=== PATIENT | male | born 1935 | race Caucasian/White ===

== ENCOUNTER 2020-02-22 17:19 | Emergency (ER) | payer OTHER, MEDICAID ==
[~2020-02-22] VITALS: Ht 177.8 cm; Wt 68.0 kg
[2020-02-22 17:19] VITALS: BP_SYST 102
[2020-02-22 18:12] LABS: BILIRUBIN,URINE NEGATIVE (NEGATIVE); CLARITY/URINE CLEAR (CLEAR); COLOR,URINE YELLOW (YELLOW); GLUCOSE,URINE NEGATIVE (NEGATIVE); KETONES,URINE NEGATIVE (NEGATIVE); LEUKOCYTE ESTERASE ,URINE NEGATIVE (NEGATIVE); NITRITE, URINE NEGATIVE (NEGATIVE); PROTEIN URINE NEGATIVE (NEGATIVE)
[2020-02-22 18:21] LABS: BASOPHILS % (AUTO) 0.3 % (0.0-2.0); EOSINOPHILS % (AUTO) 0.2 % (0.0-4.0); LYMPHOCYTES # (AUTO) 2.8 K/uL (1.0-5.5); LYMPHOCYTES % (AUTO) 17.4 % (20.5-51.5); MEAN CORPUSCULAR HEMOGLOBIN 30 pg (27-31); MEAN CORPUSCULAR HGB CONC 33 % (32-36); MEAN CORPUSCULAR VOLUME 90 fL (79.0-98.0); MONOCYTES # (AUTO) 0.5 K/uL (0.0-1.0); MONOCYTES % (AUTO) 3.1 % (1.7-9.3); NEUTROPHILS # (AUTO) 12.7 K/uL (1.8-7.7); PLATELET COUNT (AUTO) 174 K/uL (130-430); RED BLOOD CELL COUNT(AUTO) 4.66 MIL/uL (4.2-6.2); RED CELL DISTRIBUTION WIDTH 14.6 % (9.0-15.0)
[2020-02-22 18:30] LABS: ANION GAP 10 (5-15); CHLORIDE 100 mmol/L (98-107); CREATININE 0.81 mg/dL (0.55-1.30); GLUCOSE 116 mg/dL (70-99); POTASSIUM 4.8 mmol/L (3.5-5.1); SODIUM SERUM 137 mmol/L (136-145); UREA NITROGEN, BLOOD 14 mg/dL (8-21)
[2020-02-22 18:34] LABS: BLOOD, URINE TRACE (NEGATIVE)
[2020-02-22 18:36] LABS: ALANINE AMINOTRANSFERASE 26 U/L (12-78); ALBUMIN 3.6 g/dL (3.4-4.8); ASPARTATE AMINOTRANSFERASE 26 U/L (10-37); TOTAL BILIRUBIN 0.8 mg/dL (0.0-1.0)
[2020-02-22 18:39] LABS: ALCOHOL, BLOOD < 3 mg/dL (<10)
[2020-02-22 18:40] LABS: ACETAMINOPHEN < 1 ug/mL (1-30)
[2020-02-22 18:42] LABS: BARBITURATE, URINE NEGATIVE (NEG <=200); BENZODIAZEPINE, URINE NEGATIVE (NEG <=150); CANNABINOID, URINE NEGATIVE (NEG <=50); COCAINE, URINE NEGATIVE (NEG <=150); METHAMPHETAMINES SCREEN,URINE NEGATIVE (NEG <=500); OPIATE, URINE NEGATIVE (NEG <=100); PHENCYCLIDINE SCREEN,URINE NEGATIVE (NEG <=25); UR TRICYCLIC ANTIDEPRESSANTS NEGATIVE (NEG <=300); URINE AMPHETAMINE NEGATIVE (NEG <=500); URINE METHADONE NEGATIVE (NEG <=200); URINE OXYCODONE SCREEN NEGATIVE (NEG <=100); URINE PROPOXYPHENE SCREEN NEGATIVE (NEG <=300)
[2020-02-22 18:53] LABS: BACTERIA,URINE FEW /HPF (None Seen); MUCUS,URINE None Seen /LPF (None Seen); WBC,URINE 0-3 /HPF (0-3)
[2020-02-22 18:58] VITALS: BP_SYST 104
[2020-02-22 19:08] LABS: CHOLESTEROL 142 mg/dL (<200); HDL CHOLESTEROL 66 mg/dL (>45); LDL CHOLESTEROL 63 mg/dL (<100); TRIGLYCERIDES 66 mg/dL (30-150)
== END 2020-02-22 18:58 ==
LOC: SED 17:19
DX: R45.1 Restlessness and agitation (principal)
CPT/HCPCS: 36415; 80053; 80061; 80307; 81000; 83036; 85025; 87081; 99285; G0480; G0481; G0482

== ENCOUNTER 2020-02-23 19:32 | Inpatient (IN) | payer OTHER, MEDICAID, SELFPAY ==
[~2020-02-23] VITALS: Ht 172.7 cm; Wt 68.0 kg
[2020-02-23 19:32] VITALS: BP_SYST 120
[2020-02-23] MEDS ORDERED: NACL 0.9% 1,000 ML IV ONE (19:40)
[2020-02-23 21:19] LABS: BASOPHILS % (AUTO) 0.3 % (0.0-2.0); EOSINOPHILS % (AUTO) 0.3 % (0.0-4.0); HEMATOCRIT 38.1 % (36-54); HEMOGLOBIN 12.9 g/dL (14.0-18.0); LYMPHOCYTES # (AUTO) 1.8 K/uL (1.0-5.5); LYMPHOCYTES % (AUTO) 18.3 % (20.5-51.5); MEAN CORPUSCULAR HEMOGLOBIN 30 pg (27-31); MEAN CORPUSCULAR HGB CONC 34 % (32-36); MEAN CORPUSCULAR VOLUME 90 fL (79.0-98.0); MONOCYTES # (AUTO) 0.4 K/uL (0.0-1.0); MONOCYTES % (AUTO) 4.4 % (1.7-9.3); NEUTROPHILS # (AUTO) 7.7 K/uL (1.8-7.7); NEUTROPHILS % (AUTO) 76.7 % (40.0-70.0); PLATELET COUNT (AUTO) 271 K/uL (130-430); RED BLOOD CELL COUNT(AUTO) 4.25 MIL/uL (4.2-6.2); RED CELL DISTRIBUTION WIDTH 14.3 % (9.0-15.0)
[2020-02-23 21:35] LABS: ANION GAP 7 (5-15); CALCIUM 9.1 mg/dL (8.4-11.0); CHLORIDE 99 mmol/L (98-107); CREATININE 0.73 mg/dL (0.55-1.30); GLUCOSE 111 mg/dL (70-99); POTASSIUM 4.1 mmol/L (3.5-5.1); SODIUM SERUM 137 mmol/L (136-145); UREA NITROGEN, BLOOD 13 mg/dL (8-21)
[2020-02-23 21:37] LABS: PROTHROMBIN TIME 10.3 SECS (9.5-12.5)
[2020-02-23 21:40] LABS: ALANINE AMINOTRANSFERASE 25 U/L (12-78); ALBUMIN 3.2 g/dL (3.4-4.8); ASPARTATE AMINOTRANSFERASE 25 U/L (10-37)
[2020-02-24] VITALS (7 sets, daily range): BP systolic 100–115
[2020-02-24] MEDS ORDERED: LORA-258 PO (05:37)
[2020-02-24] MEDS ORDERED: ACET325T53 PO (05:37)
[2020-02-24] MEDS ORDERED: BISA10SU61 RC (05:37)
[2020-02-24] MEDS ORDERED: CARB1TAB21 PO (05:37)
[2020-02-24] MEDS ORDERED: PROP10TA10 PO (05:37)
[2020-02-24] MEDS ORDERED: MOM PO (05:37)
[2020-02-24] MEDS ORDERED: DONE10TA44 PO (05:37)
[2020-02-24] MEDS ORDERED: Theragran PO (05:37)
[2020-02-24] MEDS ORDERED: OLAN5TAB26 PO (05:37)
[2020-02-24] MEDS ORDERED: TRAZ-250 PO (05:37)
[2020-02-24] MEDS ORDERED: MILK OF MAGNESIA 30 ML UDC PO PRN (08:00)
[2020-02-24] MEDS ORDERED: ACETAMINOPHEN 325 MG TABLET PO PRN (08:00)
[2020-02-24] MEDS: PROPRANOLOL HCL 10 MG TABLET (INDERAL) PO SCH ×3 (09:00→21:39)
[2020-02-24] MEDS: CARBIDOPA/LEVODOPA 25/100 MG TABLET PO SCH ×3 (09:25→21:38)
[2020-02-24] MEDS: OLANZapine 5 MG TABLET PO SCH ×2 (09:25→21:38)
[2020-02-24] MEDS: cefTRIAXone 1 GM in D5W 50 ML IV SCH (11:00)
[2020-02-24] MEDS ORDERED: HALOPERIDOL LACTATE 5 MG/ML VIAL IM ONE (12:00)
[2020-02-24] MEDS ORDERED: DONEPEZIL HCL 5 MG TABLET (ARICEPT) PO SCH (21:00)
[2020-02-24] MEDS ORDERED: traZODone HCL 50 MG TABLET (DESYREL) PO SCH (21:00)
[2020-02-24] MEDS: LORazepam 1 MG TABLET PO PRN (21:38)
[2020-02-25] VITALS: BP_SYST 93
[2020-02-25 04:00] VITALS: BP_SYST 95
[2020-02-25 07:50] VITALS: BP_SYST 106
[2020-02-25] MEDS: CARBIDOPA/LEVODOPA 25/100 MG TABLET PO SCH ×3 (09:00→20:35)
[2020-02-25] MEDS: PROPRANOLOL HCL 10 MG TABLET (INDERAL) PO SCH ×2 (09:00→21:00)
[2020-02-25] MEDS: OLANZapine 5 MG TABLET PO SCH ×2 (09:00→20:35)
[2020-02-25] MEDS: cefTRIAXone 1 GM in D5W 50 ML IV SCH (10:21)
[2020-02-25 12:00] VITALS: BP_SYST 117
[2020-02-25 16:00] VITALS: BP_SYST 108
[2020-02-25 20:00] VITALS: BP_SYST 122
[2020-02-25] MEDS: traZODone HCL 50 MG TABLET (DESYREL) PO SCH (20:35)
[2020-02-25] MEDS: DONEPEZIL HCL 5 MG TABLET (ARICEPT) PO SCH (20:36)
[2020-02-25] MEDS: LORazepam 1 MG TABLET PO PRN (20:46)
[2020-02-26 00:05] VITALS: BP_SYST 97
[2020-02-26] MEDS ORDERED: LORazepam 1 MG TABLET PO PRN (05:45)
[2020-02-26 08:30] VITALS: BP_SYST 103
[2020-02-26] MEDS: CARBIDOPA/LEVODOPA 25/100 MG TABLET PO SCH ×3 (08:43→20:51)
[2020-02-26] MEDS: PROPRANOLOL HCL 10 MG TABLET (INDERAL) PO SCH ×2 (09:00→21:00)
[2020-02-26] MEDS ORDERED: OLANZapine 5 MG TABLET PO SCH (09:00)
[2020-02-26] MEDS: cefTRIAXone 1 GM in D5W 50 ML IV SCH (10:12)
[2020-02-26 11:18] VITALS: BP_SYST 112
[2020-02-26 16:10] VITALS: BP_SYST 110
[2020-02-26 20:24] VITALS: BP_SYST 107
[2020-02-26] MEDS: OLANZapine 10 MG TABLET PO SCH (20:51)
[2020-02-26] MEDS: DONEPEZIL HCL 5 MG TABLET (ARICEPT) PO SCH (20:51)
[2020-02-26] MEDS: traZODone HCL 50 MG TABLET (DESYREL) PO SCH (20:51)
[2020-02-27 00:08] VITALS: BP_SYST 102
[2020-02-27 08:00] VITALS: BP_SYST 133
[2020-02-27] MEDS: PROPRANOLOL HCL 10 MG TABLET (INDERAL) PO SCH (09:07)
[2020-02-27] MEDS: CARBIDOPA/LEVODOPA 25/100 MG TABLET PO SCH ×2 (09:07→15:00)
[2020-02-27] MEDS: OLANZapine 10 MG TABLET PO SCH (09:07)
[2020-02-27] MEDS: cefTRIAXone 1 GM in D5W 50 ML IV SCH (11:05)
[2020-02-27 12:00] VITALS: BP_SYST 121
[2020-02-27] MEDS ORDERED: LEVO750T45 PO (14:39)
[2020-02-27 14:43] VITALS: BP_SYST 116
[2020-02-27 16:30] VITALS: BP_SYST 116
== END 2020-02-27 16:15 | DRG 177 ==
LOC: SED 19:32 → EEVIPCON 19:32 → STU 22:56
PROVIDERS: ADMIT Internal Medicine Hospice and Palliative Medicine; ATTEND Internal Medicine Hospice and Palliative Medicine
DX: J69.0 Pneumonitis due to inhalation of food and vomit (principal); G93.41 Metabolic encephalopathy; F03.91 Unspecified dementia, unspecified severity, with behavioral disturbance; Z20.828 Contact with and (suspected) exposure to other viral communicable diseases; F29 Unspecified psychosis not due to a substance or known physiological condition; G20 Parkinson's disease; D64.9 Anemia, unspecified; Z88.6 Allergy status to analgesic agent; Z88.8 Allergy status to other drugs, medicaments and biological substances; Z79.899 Other long term (current) drug therapy
CPT/HCPCS: 36415; 71045; 80053; 80061; 80307; 81000-TC; 83036; 83605; 84484; 85025; 85610-TC; 85730-TC; 87040-TC; 87081; 93005; 96360; 96361; 99285; G0378; G0480; G0481; G0482; J0696; J7030; J7060; U0002

== ENCOUNTER 2020-03-07 22:11 | Inpatient (IN) | payer OTHER, MEDICAID, SELFPAY ==
[~2020-03-07] VITALS: Ht 167.6 cm; Wt 52.2 kg
[~2020-03-07 22:11] MED LIST: ACET325T53 PO; BISA10SU61 RC; CARB1TAB21 PO; DONE10TA44 PO; LEVO750T45 PO; LORA-258 PO; MOM PO; OLAN5TAB26 PO; PROP10TA10 PO; TRAZ-250 PO; Theragran PO
[2020-03-07 22:15] VITALS: BP_SYST 109
[2020-03-08 00:09] LABS: BASOPHILS # (AUTO) 0.1 K/uL (0.0-0.2); BASOPHILS % (AUTO) 0.7 % (0.0-2.0); CALCIUM 9.5 mg/dL (8.4-11.0); CHLORIDE 102 mmol/L (98-107); CREATININE 0.95 mg/dL (0.55-1.30); EOSINOPHILS % (AUTO) 0.3 % (0.0-4.0); GLUCOSE 119 mg/dL (70-99); HEMATOCRIT 38.2 % (36-54); HEMOGLOBIN 12.9 g/dL (14.0-18.0); LYMPHOCYTES # (AUTO) 2.7 K/uL (1.0-5.5); LYMPHOCYTES % (AUTO) 19.9 % (20.5-51.5); MEAN CORPUSCULAR HEMOGLOBIN 30 pg (27-31); MEAN CORPUSCULAR HGB CONC 34 % (32-36); MEAN CORPUSCULAR VOLUME 89 fL (79.0-98.0); MONOCYTES # (AUTO) 0.6 K/uL (0.0-1.0); MONOCYTES % (AUTO) 4.4 % (1.7-9.3); NEUTROPHILS % (AUTO) 74.7 % (40.0-70.0); PLATELET COUNT (AUTO) 344 K/uL (130-430); RED BLOOD CELL COUNT(AUTO) 4.28 MIL/uL (4.2-6.2); RED CELL DISTRIBUTION WIDTH 14.1 % (9.0-15.0); SODIUM SERUM 139 mmol/L (136-145); UREA NITROGEN, BLOOD 25 mg/dL (8-21); WHITE BLOOD COUNT (AUTO) 13.4 K/uL (4.8-10.8)
[2020-03-08 00:15] LABS: INR 1.1 (0.80-1.20); PROTHROMBIN TIME 10.9 SECS (9.5-12.5)
[2020-03-08 00:19] LABS: ALANINE AMINOTRANSFERASE 14 U/L (12-78); ALBUMIN 2.8 g/dL (3.4-4.8); ANION GAP 3 (5-15); ASPARTATE AMINOTRANSFERASE 18 U/L (10-37); LACTATE DEHYDROGENASE 110 U/L (85-227); TOTAL BILIRUBIN 0.6 mg/dL (0.0-1.0)
[2020-03-08 00:42] LABS: C-REACTIVE PROTEIN QUANT 22.3 mg/dL (0-0.5)
[2020-03-08] MEDS ORDERED: AZITHROMYCIN 500 MG in NS 250 ML IV ONE (01:15)
[2020-03-08 01:25] LABS: BILIRUBIN,URINE NEGATIVE (NEGATIVE); BLOOD, URINE NEGATIVE (NEGATIVE); CLARITY/URINE CLEAR (CLEAR); COLOR,URINE YELLOW (YELLOW); GLUCOSE,URINE NEGATIVE (NEGATIVE); KETONES,URINE NEGATIVE (NEGATIVE); LEUKOCYTE ESTERASE ,URINE NEGATIVE (NEGATIVE); NITRITE, URINE NEGATIVE (NEGATIVE); PH,URINE 6.5 (5.0-8.0); PROTEIN URINE NEGATIVE (NEGATIVE); UROBILINOGEN,URINE 0.2 (0.2-1.0)
[2020-03-08] MEDS ORDERED: IPRA3AMP9 INH (01:30)
[2020-03-08] MEDS ORDERED: CARB-60 PO (01:30)
[2020-03-08] MEDS ORDERED: OMEG1CAP PO (01:35)
[2020-03-08] MEDS ORDERED: OLAN10TA19 PO (01:35)
[2020-03-08] MEDS ORDERED: ACET-73 PO (01:35)
[2020-03-08] MEDS ORDERED: OLAN20TA35 PO (01:35)
[2020-03-08] MEDS ORDERED: TRAZ-250 PO (01:35)
[2020-03-08] MEDS ORDERED: LEVOFLOXACIN 500 MG/D5W 100 ML IV ONE ×2 (02:00→03:25)
[2020-03-08] MEDS ORDERED: AZITHROMYCIN 500 MG/VIAL (ZITHROMAX) IV ONE (02:03)
[2020-03-08 02:15] VITALS: BP_SYST 111
[2020-03-08] MEDS ORDERED: ACETAMINOPHEN 500 MG TABLET PO PRN (06:00)
[2020-03-08] MEDS ORDERED: ACETAMINOPHEN 325 MG TABLET PO PRN (06:00)
[2020-03-08 08:00] VITALS: BP_SYST 111
[2020-03-08] MEDS: DONEPEZIL HCL 5 MG TABLET (ARICEPT) PO SCH (08:51)
[2020-03-08] MEDS: PROPRANOLOL HCL 10 MG TABLET (INDERAL) PO SCH ×2 (08:51→21:48)
[2020-03-08] MEDS: OLANZapine 10 MG TABLET PO SCH ×2 (08:52→21:48)
[2020-03-08] MEDS: CARBIDOPA/LEVODOPA 10/100 MG TABLET PO SCH ×3 (08:52→21:48)
[2020-03-08] MEDS: NACL 0.9% 1,000 ML IV SCH (14:45)
[2020-03-08 14:51] VITALS: BP_SYST 100
[2020-03-08 18:49] VITALS: BP_SYST 112
[2020-03-08 20:55] VITALS: BP_SYST 123
[2020-03-08] MEDS ORDERED: traZODone HCL 50 MG TABLET (DESYREL) PO SCH (21:00)
[2020-03-08] MEDS ORDERED: LEVOFLOXACIN 250 MG/D5W 50 ML IV SCH (21:00)
[2020-03-08] MEDS: traZODone HCL 50 MG TABLET (DESYREL) PO SCH (21:48)
[2020-03-09 00:50] VITALS: BP_SYST 106
[2020-03-09] MEDS: PIPERACILLIN/TAZO 3.375/DEX-IS 50 ML IV SCH ×5 (00:52→23:13)
[2020-03-09 08:00] VITALS: BP_SYST 97
[2020-03-09] MEDS: PROPRANOLOL HCL 10 MG TABLET (INDERAL) PO SCH ×2 (09:00→21:00)
[2020-03-09] MEDS: CARBIDOPA/LEVODOPA 10/100 MG TABLET PO SCH ×3 (09:27→21:00)
[2020-03-09] MEDS: DONEPEZIL HCL 5 MG TABLET (ARICEPT) PO SCH (09:27)
[2020-03-09] MEDS: OLANZapine 10 MG TABLET PO SCH ×2 (09:27→21:00)
[2020-03-09] MEDS: ENOXAPARIN SODIUM 30 MG/0.3 ML SYRINGE SUBCUT SCH (09:28)
[2020-03-09 12:00] VITALS: BP_SYST 105
[2020-03-09] MEDS: NACL 0.9% 1,000 ML IV SCH (15:18)
[2020-03-09 16:00] VITALS: BP_SYST 108
[2020-03-09 20:00] VITALS: BP_SYST 108
[2020-03-09] MEDS: traZODone HCL 50 MG TABLET (DESYREL) PO SCH (21:00)
[2020-03-10] VITALS: BP_SYST 106
[2020-03-10] MEDS: PIPERACILLIN/TAZO 3.375/DEX-IS 50 ML IV SCH ×2 (06:00→12:02)
[2020-03-10 08:00] VITALS: BP_SYST 108
[2020-03-10] MEDS: PROPRANOLOL HCL 10 MG TABLET (INDERAL) PO SCH (09:00)
[2020-03-10] MEDS: ENOXAPARIN SODIUM 30 MG/0.3 ML SYRINGE SUBCUT SCH (10:12)
[2020-03-10] MEDS: CARBIDOPA/LEVODOPA 10/100 MG TABLET PO SCH ×2 (10:12→15:05)
[2020-03-10] MEDS: DONEPEZIL HCL 5 MG TABLET (ARICEPT) PO SCH (10:12)
[2020-03-10] MEDS: OLANZapine 10 MG TABLET PO SCH (10:12)
[2020-03-10 12:22] VITALS: BP_SYST 105
[2020-03-10 13:08] VITALS: BP_SYST 103
[2020-03-10] MEDS: NACL 0.9% 1,000 ML IV SCH (14:45)
[2020-03-10 16:47] VITALS: BP_SYST 103
== END 2020-03-10 17:20 | DRG 871 ==
LOC: SED 22:11 → EEVIPCON 03-08 01:14 → STU 03-08 01:14 → SMU 03-10 12:20
PROVIDERS: ADMIT Internal Medicine Hospice and Palliative Medicine; ATTEND Internal Medicine Hospice and Palliative Medicine
DX: A41.9 Sepsis, unspecified organism (principal); J18.9 Pneumonia, unspecified organism; G93.41 Metabolic encephalopathy; J96.01 Acute respiratory failure with hypoxia; F02.81 Dementia in other diseases classified elsewhere, unspecified severity, with behavioral disturbance; I10 Essential (primary) hypertension; J44.9 Chronic obstructive pulmonary disease, unspecified; G20 Parkinson's disease; Z88.5 Allergy status to narcotic agent; Z88.8 Allergy status to other drugs, medicaments and biological substances; Z79.899 Other long term (current) drug therapy; Z74.01 Bed confinement status; Z03.818 Encounter for observation for suspected exposure to other biological agents ruled out
CPT/HCPCS: 36415; 36600; 71045; 80053; 81003; 82550-TC; 82728; 82803-TC; 83605; 83615-TC; 83880; 84484; 85025; 85384-TC; 85610-TC; 85730-TC; 86140; 87040-TC; 87081; 87086; 93005; 96365; 99291; G0378; J0456; J1650; J1956; J2543; J7030; U0002